=== PATIENT | male | born 1950 | race Caucasian/White ===

== ENCOUNTER 2016-11-20 08:28 | Inpatient (IN) | payer MEDICARE ==
[~2016-11-20] VITALS: Ht 175.3 cm; Wt 105.7 kg
[2016-11-20] VITALS (13 sets, daily range): BP systolic 123–150; BP diastolic 50–82
[2016-11-20] MEDS: IV NORMAL SALINE 1000ML BAG 1,000 ML IV SCH ×2 (10:20→20:15)
[2016-11-20] MEDS: MORPHINE SULFATE 2 MG/ML DISP.SYRIN. IV PRN ×2 (10:21→13:36)
--- NOTE | 2016-11-20 10:57 | PDOC1 ---
History and Physical Identification/Chief Complaint Chief Complaint Admission 11/20/2016 Chief complaint left-sided flank pain History of present illness: A 66-year-old male patient with prior history of renal stones and left-sided lithotripsy presented to the [place] ER with complaints of a sudden onset of left flank pain started this morning around 4 AM pain is intractable nature then bid 10 getting better with Toradol. He had CT of the abdomen for stone protocol which showed a 8 mm mid ureteral stone. Patient has been transferred to [facility] for further evaluation by urology. At the time of my examination patient says his pain is getting better 6 x 10 getting better the morphine denies any hematuria or abdominal pain. past medical history: renal stones with lithotripsy Past surgical history cholecystectomy Family history renal stones present Social history no smoking no alcohol or drug abuse healthy living. Allergies NKDA. Problems: Current Medications Current Medications Current Medications Medications (Trade) Dose Ordered Sig/Annie Start Time Stop Time Status Last Admin Dose Admin Morphine Sulfate 2 mg PRN Q2HR PRN 11/20/16 10:15 11/20/16 10:21 2 MG Sodium Chloride 1,000 ml @ 100 mls/hr Q10H 11/20/16 10:15 11/20/16 10:20 100 MLS/HR Allergies Allergies Allergies Coded Allergies Type Severity Reaction Last Updated Verified No Known Drug Allergies 11/20/16 No ROS Review of System CONSTITUTIONAL: No fever or chills EYES: No recent changes SKIN: No rash or itching CARDIOVASCULAR: No chest pain, syncope, palpitations, or edema RESPIRATORY: No SOB or cough GASTROINTESTINAL: No nausea, vomiting or abdominal pain NEUROLOGICAL: No headaches or weakness ENDOCRINE: No cold or heat intolerance GENITOURINARY: No urgency or frequency of urination MUSCULOSKELETAL: No back pain or joint pain LYMPHATICS: No enlarged lymph nodes PSYCHIATRIC: No anxiety or depression Physical Exam Physical Exam GEN.: No apparent distress. Alert and oriented. HEENT: Head is normocephalic, atraumatic NECK: Supple. LUNGS: Clear to auscultation. HEART: RRR, S1, S2 present. Peripheral pulses intact ABDOMEN: Soft, nontender. Positive bowel sounds. EXTREMITIES: Without any cyanosis. NEUROLOGIC: Normal speech, normal tone PSYCHIATRIC: Normal affect, normal mood. SKIN: No ulcerations Vitals Vitals Vital Signs Date Time Temp Pulse Resp B/P (MAP) Pulse Ox O2 Delivery O2 Flow Rate FiO2 11/20/16 10:21 Room Air VTE Prophylaxis Ordered VTE Prophylaxis Devices: Yes VTE Pharmacological Prophylaxi: No Assessment/Plan Assessment/Plan Assessment and plan #1 recurrent abdominal pain due to large left ureter UPJ stone 8 mm. #2 intractable abdominal pain due to abnormal, #3 sinus bradycardia asymptomatic. Plan #1 patient has been getting IV hydration with normal saline at 100 enemas per hour, continue morphine 2 mg every 2 hours for pain control, patient is asymptomatic denies any chest pain monitor heart rate currently his vitals are stable. Labs and images reviewed from [facility] CBC BMP within normal limits no elevated WBC. Consult Dr. Wright for further evaluation and management Dr. Wright has been notified. Case discussed with ER physician. MAURICE LAWSON MD Nov 20, 2016 10:57
[2016-11-20] MEDS ORDERED: hydrALAZINE 20 MG/ML VIAL. IVP PRN (11:00)
[2016-11-20] MEDS ORDERED: ONDANSETRON PF 4 MG/2 ML VIAL. IV PRN ×2 (11:00→12:30)
[2016-11-20] MEDS ORDERED: ALBUTEROL SULFATE 2.5 MG/3 ML NEBU. NEB PRN (11:00)
[2016-11-20] MEDS ORDERED: ACETAMINOPHEN 325 MG TABLET. PO PRN (11:00)
[2016-11-20] MEDS ORDERED: HYDROcodone/APAP 5/325MG 1 TAB TABLET PO PRN (11:00)
[2016-11-20] MEDS ORDERED: IV RINGERS,LACTATED 1000ML 1,000 ML IV SCH (12:27)
[2016-11-20] MEDS ORDERED: MORPHINE SULFATE 2 MG/ML DISP.SYRIN. IV PRN (12:30)
[2016-11-20] MEDS ORDERED: LIDOCAINE 1% 1 ML SYRINGE. ID PRN (12:30)
[2016-11-20] MEDS ORDERED: fentaNYL PF VIAL 100 MCG/2 ML VIAL IV PRN ×2 (12:30)
[2016-11-20] MEDS ORDERED: PROCHLORPERAZINE 10 MG/2 ML VIAL. IV PRN (12:30)
[2016-11-20] MEDS ORDERED: HYDROmorphone 2 MG/ML VIAL IV PRN (12:30)
[2016-11-20] MEDS ORDERED: LIDOCAINE 2% JELLY 6ML IN APPLICATOR. ONE (12:33)
[2016-11-20] MEDS ORDERED: IOHEXOL 300 MG/ML 50 ML VIAL. ONE (12:33)
--- NOTE | 2016-11-20 15:21 | PDOC ---
PROGRESS NOTES Subjective Subjective Pt. with left renal colic Objective Objective Vital Signs Date Time Temp Pulse Resp B/P (MAP) Pulse Ox O2 Delivery O2 Flow Rate FiO2 11/20/16 14:10 Room Air 11/20/16 11:44 94 11/20/16 11:00 98.2 69 20 145/77 (99) 98.2 Physical Exam Physical Exam Pt. with 8 mm left proximal ureteral stone with mild left hydronephrosis Plan Plan of Care I discussed with the pt. his stone and we discussed the options of observation vs. surgical intervention with cystoscopy with left retrograde pyelogram and left ureteral stent placement. Pt. understands and wishes to proceed with operation. Will proceed accordingly. Comment Review of Relevant I have reviewed the following items mary (where applicable) has been applied. Medications Current Medications Morphine Sulfate 2 mg PRN Q2HR PRN IV PAIN Last administered on 11/20/16 13:36 ; Start 11/20/16 at 10:15 Sodium Chloride 1,000 ml @ 100 mls/hr Q10H IV Last administered on 11/20/16 10 :20; Start 11/20/16 at 10:15 Acetaminophen (Tylenol) 325 mg PRN Q6HRS PRN PO MILD PAIN / TEMP; Start at 11:00 Acetaminophen/ Hydrocodone Bitart (Lortab 5/325) 1 tab PRN Q6HRS PRN PO MODERATE TO SEVERE PAIN; Start 11/20/16 at 11:00 Hydralazine HCl (Apresoline) 10 mg PRN Q4HRS PRN IVP ELEVATED BP, SEE COMMENTS ; Start 11/20/16 at 11:00 Ondansetron HCl (Zofran) 4 mg PRN Q8HRS PRN IV NAUSEA/VOMITING; Start 11/20/16 at 11:00 Albuterol Sulfate (Ventolin Neb Soln) 2.5 mg PRN Q4HRS PRN NEB SHORTNESS OF BREATH; Start 11/20/16 at 11:00; Stop 11/20/16 at 11:50; Status DC Ondansetron HCl (Zofran) 4 mg PRN Q6HRS PRN IV NAUSEA/VOMITING; Start 11/20/16 at 12:30; Stop 11/20/16 at 19:00 Fentanyl Citrate (Fentanyl 2ml Vial) 25 mcg PRN Q5MIN PRN IV MILD PAIN; Start 11/20/16 at 12:30; Stop 11/20/16 at 19:00 Fentanyl Citrate (Fentanyl 2ml Vial) 50 mcg PRN Q5MIN PRN IV MODERATE PAIN; Start 11/20/16 at 12:30; Stop 11/20/16 at 19:00 Morphine Sulfate 1 mg PRN Q10MIN PRN IV SEVERE PAIN; Start 11/20/16 at 12:30; Stop 11/20/16 at 19:00 Ringer's Solution 1,000 ml @ 30 mls/hr Q24H IV ; Start 11/20/16 at 12:27; Stop 11/20/16 at 19:00 Lidocaine HCl 2 ml PRN 1X PRN ID PRIOR TO IV START; Start 11/20/16 at 12:30; Stop 11/20/16 at 19:00 Hydromorphone HCl (Dilaudid) 0.5 mg PRN Q10MIN PRN IV SEV PAIN, Second choice; Start 11/20/16 at 12:30; Stop 11/20/16 at 19:00 Prochlorperazine Edisylate (Compazine) 5 mg PACU PRN PRN IV NAUSEA, MRX1; Start 11/20/16 at 12:30; Stop 11/20/16 at 19:00 Lidocaine HCl (Glydo (Lidocaine) Jelly) 6 jyoti STK-MED ONCE .ROUTE ; Start at 12:33; Stop 11/20/16 at 12:34; Status DC Iohexol (Omnipaque 300 Mg/ml) 50 ml STK-MED ONCE .ROUTE ; Start 11/20/16 at 12:33 ; Stop 11/20/16 at 12:34; Status DC Lidocaine HCl (Glydo (Lidocaine) Jelly) 6 jyoti STK-MED ONCE .ROUTE ; Start at 12:33; Stop 11/20/16 at 12:34; Status DC Vitals/I & O Vital Sign - Last 24 Hours 11/20/16 11/20/16 11/20/16 11/20/16 09:30 10:00 10:00 10:21 Temp 97.5 97.5 97.5 97.5 Pulse 54 54 Resp 20 20 B/P (MAP) 150/82 (104) 150/82 (104) Pulse Ox 96 96 O2 Delivery Room Air Room Air Room Air Room Air 11/20/16 11/20/16 11/20/16 11/20/16 11:00 11:44 13:36 14:10 Temp 98.2 98.2 Pulse 69 Resp 20 B/P (MAP) 145/77 (99) Pulse Ox 92 94 O2 Delivery Room Air Room Air Room Air Room Air MARY HERNANDEZ MD Nov 20, 2016 15:21
[2016-11-20] MEDS ORDERED: LIDOCAINE 2% PF Vial for OR 5 ML VIAL. ONE (15:54)
[2016-11-20] MEDS ORDERED: fentaNYL PF VIAL 100 MCG/2 ML VIAL ONE (15:54)
[2016-11-20] MEDS ORDERED: PROPOFOL 20 ML IV ONE (15:54)
[2016-11-20] MEDS ORDERED: ONDANSETRON PF 4 MG/2 ML VIAL. ONE (16:48)
[2016-11-20] MEDS ORDERED: DEXAMETHASONE SOD PHOS 20 MG/5 ML VIAL. ONE (16:48)
[2016-11-20] MEDS ORDERED: SEVOFLURANE 31 TO 60 MINUTES. IH ONE (17:02)
--- NOTE | 2016-11-20 17:12 | PDOC4 ---
OPERATIVE NOTE: pre-op dx-left proximal ureteral stone procedure-cystoscopy, left retrograde pyelogram, left ureteral stent placement surgeon-mani murphy-general Pt. to PACU in stable condition D/C home tomorrow if doing ok F/U next week or two with [facility] urology at [facility] location for further evaluation and probable left ESWL MARY HERNANDEZ MD Nov 20, 2016 17:12
--- NOTE | 2016-11-20 17:27 | PDOC2 ---
UROLOGY CONSULT Date of Admission DATE: 11/20/16 TIME: 17:25 ROS ROS: RESPIRATORY: Shortness of breath denies. Cough denies. UROLOGY: Denies blood in urine. Denies difficulty urinating Current Medications Current Medications Morphine Sulfate 2 mg PRN Q2HR PRN IV PAIN Last administered on 11/20/16 13:36 ; Start 11/20/16 at 10:15 Sodium Chloride 1,000 ml @ 100 mls/hr Q10H IV Last administered on 11/20/16 10 :20; Start 11/20/16 at 10:15 Acetaminophen (Tylenol) 325 mg PRN Q6HRS PRN PO MILD PAIN / TEMP; Start at 11:00 Acetaminophen/ Hydrocodone Bitart (Lortab 5/325) 1 tab PRN Q6HRS PRN PO MODERATE TO SEVERE PAIN; Start 11/20/16 at 11:00 Hydralazine HCl (Apresoline) 10 mg PRN Q4HRS PRN IVP ELEVATED BP, SEE COMMENTS ; Start 11/20/16 at 11:00 Ondansetron HCl (Zofran) 4 mg PRN Q8HRS PRN IV NAUSEA/VOMITING; Start 11/20/16 at 11:00 Albuterol Sulfate (Ventolin Neb Soln) 2.5 mg PRN Q4HRS PRN NEB SHORTNESS OF BREATH; Start 11/20/16 at 11:00; Stop 11/20/16 at 11:50; Status DC Ondansetron HCl (Zofran) 4 mg PRN Q6HRS PRN IV NAUSEA/VOMITING; Start 11/20/16 at 12:30; Stop 11/20/16 at 19:00 Fentanyl Citrate (Fentanyl 2ml Vial) 25 mcg PRN Q5MIN PRN IV MILD PAIN; Start 11/20/16 at 12:30; Stop 11/20/16 at 19:00 Fentanyl Citrate (Fentanyl 2ml Vial) 50 mcg PRN Q5MIN PRN IV MODERATE PAIN; Start 11/20/16 at 12:30; Stop 11/20/16 at 19:00 Morphine Sulfate 1 mg PRN Q10MIN PRN IV SEVERE PAIN; Start 11/20/16 at 12:30; Stop 11/20/16 at 19:00 Ringer's Solution 1,000 ml @ 30 mls/hr Q24H IV ; Start 11/20/16 at 12:27; Stop 11/20/16 at 19:00 Lidocaine HCl 2 ml PRN 1X PRN ID PRIOR TO IV START; Start 11/20/16 at 12:30; Stop 11/20/16 at 19:00 Hydromorphone HCl (Dilaudid) 0.5 mg PRN Q10MIN PRN IV SEV PAIN, Second choice; Start 11/20/16 at 12:30; Stop 11/20/16 at 19:00 Prochlorperazine Edisylate (Compazine) 5 mg PACU PRN PRN IV NAUSEA, MRX1; Start 11/20/16 at 12:30; Stop 11/20/16 at 19:00 Lidocaine HCl (Glydo (Lidocaine) Jelly) 6 jyoti STK-MED ONCE .ROUTE ; Start at 12:33; Stop 11/20/16 at 12:34; Status DC Iohexol (Omnipaque 300 Mg/ml) 50 ml STK-MED ONCE .ROUTE ; Start 11/20/16 at 12:33 ; Stop 11/20/16 at 12:34; Status DC Lidocaine HCl (Glydo (Lidocaine) Jelly) 6 jyoti STK-MED ONCE .ROUTE ; Start at 12:33; Stop 11/20/16 at 12:34; Status DC Propofol 20 ml @ As Directed STK-MED ONCE IV ; Start 11/20/16 at 15:54; Stop 11/20 at 15:55; Status DC Lidocaine HCl (Lidocaine Pf 2% Vial) 5 ml STK-MED ONCE .ROUTE ; Start 11/20/16 at 15:54; Stop 11/20/16 at 15:55; Status DC Fentanyl Citrate (Fentanyl 2ml Vial) 100 mcg STK-MED ONCE .ROUTE ; Start at 15:54; Stop 11/20/16 at 15:55; Status DC Cefazolin Sodium 50 ml @ As Directed STK-MED ONCE IV ; Start 11/20/16 at 16:44; Stop 11/20/16 at 16:45; Status DC Ondansetron HCl (Zofran) 4 mg STK-MED ONCE .ROUTE ; Start 11/20/16 at 16:48; Stop 11/20/16 at 16:49; Status DC Dexamethasone Sodium Phosphate (Decadron) 20 mg STK-MED ONCE .ROUTE ; Start 11/20 at 16:48; Stop 11/20/16 at 16:49; Status DC Sevoflurane (Ultane) 30 ml STK-MED ONCE IH ; Start 11/20/16 at 17:02; Stop at 17:03; Status DC Trimethoprim/ Sulfamethoxazole (Bactrim Ds) 1 tab BID PO ; Start 11/20/16 at 18: 00 Tamsulosin HCl (Flomax) 0.4 mg DAILY PO ; Start 11/20/16 at 18:00 Allergies: Coded Allergies: No Known Drug Allergies (Unverified , 11/20/16) Physical Examination PHYSICAL EXAMINATION: GENERAL: Gen. appearance: No acute distress. Mood/affect: Pleasant. HEENT: Head: Normocephalic, atraumatic. Airway Impairment: No. CHEST: Shape and expansion: Normal. Expansion: Normal. SKIN: General: Warm. Color: Good. GENITOURINARY:External genitalia - wnl. NEUROLOGICAL: Mental status: Alert and oriented 3. Language: Normal. VITALS Vital Signs Date Time Temp Pulse Resp B/P (MAP) Pulse Ox O2 Delivery O2 Flow Rate FiO2 11/20/16 17:19 56 16 147/84 98 Simple Mask 10 11/20/16 17:04 97.8 97.8 Assessment/Plan The patient is a very pleasant 66-year-old white male with history of left renal colic which began this morning. Patient was seen at the [facility] emergency room and found to have an 8 mm left proximal ureteral stone with obstruction. Patient with some continued intermittent left-sided renal colic. Patient with a past history of stones. Patient underwent a lithotripsy in the past 1. Patient also passed a 4 mm stone in the past. Patient's past medical history just significant or some orthopedic procedures on his knees and appendectomy tonsillectomy ESWL and these also had a prior TURP. Patient states he also has a history of elevated PSA and has undergone biopsies in the past which were negative for malignancy according to the patient. On physical exam patient has some mild left-sided flank pain and left sided abdominal pain. Testes are descended bilaterally phallus within normal limits on rectal examination he has good sphincter tone prostate is smooth nontender without nodules overall size 30 g. Patient normally is on no medications he has no known drug allergies. I discussed with the patient his stone and we discussed the options alternatives benefits risks and possible complications of observation versus surgical intervention with cystoscopy left retrograde Pyelogram and left ureteral stent placement to get an him unobstructed. An cyst does wish proceed ahead with operation. MARY HERNANDEZ MD Nov 20, 2016 17:27
--- NOTE | 2016-11-20 17:31 | PDOC4 ---
OPERATIVE NOTE: Preoperative diagnosis left proximal ureteral stone. Postoperative diagnosis same, procedure cystoscopy left retrograde Polygram left ureteral stent placement surgeon Kyle anesthesia Gen. indications patient is a very pleasant 66-year-old white male with 8 mm left proximal ureteral calculus with obstruction and intermittent left renal colic. I have discussed with the patient the options alternatives benefits risks and possible complications of observation versus cystoscopy left retrograde Polygram and left ureteral stent placement. Patient understands this and does wish proceeded with operation seizure note: After obtaining informed consent patient was taken to the operating room and after an excellent general anesthetic patient was placed in a dorsal lithotomy position. Groin was prepped and draped in a sterile fashion and the patient preloaded with IV antibiotics. Panendoscopy and cystoscopy were then performed with the 30 and 70 lenses on the 21 Occitan cystoscope sheath. Penile urethra sounded grossly normal external sphincter. Intact prostate with showed moderate bilobar enlargement bladder was entered and inspected. Both ureteral orifices were identified and found to grossly patent. Bladder wall showed some minimal trabeculation. No bladder tumors or bladder stones were identified. Patient was noted to have radiopacities in the area of the left proximal ureter. Left retrograde Polygram was then performed. Left distal and mid ureter. Within normal limits. Filling defect was noted in the area where the radiopacity was consistent on the patient stone with dilation above that level. Following this a floppy tip ZIP wire is then passed up the left ureteral orifice up the left ureter past the stone the left kidney. Following this the 5 Occitan open-ended Pollack catheter was passed over the ZIP wire up the left ureter and the stone rolled back to the left kidney as the Pollack catheter passed over the wire and up to the left kidney following this the ZIP wire is removed and a hydronephrotic drip was noted following this the ZIP wire was then replaced and the Pollack catheter removed and a 4.8 x 26 double-J stent then passed up the ZIP wire placing one curl in left kidney and the other curl in the bladder and the ZIP wire moved stent position was checked by fluoroscopy and direct vision found be in good position following this the bladder was then drained and the cystoscope withdrawn from the patient patient tolerated the procedure very well and was taken the recovery room stable condition we'll plan on having the patient follow up with urology care at [facility] for further evaluation and probable left-sided ESWL in the next week or 2. MARY HERNANDEZ MD Nov 20, 2016 17:31
[2016-11-20] MEDS: TAMSULOSIN 0.4 MG CAP.ER.24H. PO SCH (18:23)
[2016-11-20] MEDS: SMZ/TMP 800/160MG TABLET. PO SCH (18:23)
[2016-11-21 03:11] VITALS: BP 99/48
[2016-11-21 04:52] LABS: BASO % 0 % (0-3); EOS % 0 % (0-3); HEMATOCRIT 42.1 % (39.0-53.0); HEMOGLOBIN 14.3 g/dL (13.0-17.5); LYMPH # 0.8 x10^3/uL (1.0-4.8); LYMPH % 9 % (24-48); MEAN CORPUSCULAR HEMOGLOBIN 30 pg (25-35); MEAN CORPUSCULAR HGB CONC 34 g/dL (31-37); MEAN CORPUSCULAR VOLUME 88 fL (79-100); MONO % 2 % (0-9); NEUT % 88 % (31-73); PLATELET COUNT 192 x10^3/uL (140-400); RED BLOOD COUNT 4.79 x10^6/uL (4.30-5.70); RED CELL DISTRIBUTION WIDTH 13.7 % (11.5-14.5); WHITE BLOOD COUNT 9.3 x10^3/uL (4.0-11.0)
[2016-11-21 05:06] LABS: CREATININE 1.2 mg/dL (0.7-1.3); GFR 60.8; POTASSIUM 4.6 mmol/L (3.5-5.1)
--- NOTE | 2016-11-21 05:53 | ACF ---
Admission Forms Criteria RENAL COLIC AND KIDNEY STONES Clinical Indications for Admission to Inpatient Care ( Place 'X' for any and all applicable criteria): Admission is indicated for ANY ONE of the following (1)(2)(3)(4): [X]I. Inpatient admission required rather than observation care (Also use Renal Colic and Kidney Stones: Observation Care Criteria as appropriate) because of ANY ONE of the following: [X]a) Severe pain requiring acute inpatient management [ ]b) Urinary tract infection identified [ ]c) Vomiting that is severe or persistent [ ]d) IV fluid required rather than oral rehydration to replace significant ongoing (eg, for greater than 24 hours) losses (greater than 200 mL/hr or 3 L/m2 per day) [ ]e) Percutaneous or open drainage (eg, abscess, biliary tract) procedures [ ]f) Other condition, treatment or monitoring requiring inpatient admission [ ]II. Impending acute renal failure [ ]III. Bilateral obstruction [ ]IV. Single kidney with obstruction [ ]V. Transplanted kidney with obstruction [ ]. Possible open surgical procedure needed (eg, pyonephrosis, stone removal not amendable to other means) [ ]VII. Hemodynamic instability Extended stay beyond goal length of stay may be needed for(2)(3)(31): [ ]a) Failed initial stone removal (32) [ ]b) Pyonephrosis [ ]c) Obstructive uropathy with urinary tract infection [ ]d) Procedure complications [ ]e) Comorbidities (22) The original [employer] [facility] content created by [employer] has been revised. The portions of the content which have been revised are identified through the use of italic text or in bold, and [facility] has neither reviewed nor approved the modified material. All other unmodified content is copyright [employer] [employer]. Please see references footnoted in the original [facility] [employer] edition 2016 Admission Criteria Met?: Yes NIR SAMANO Nov 21, 2016 05:53
[2016-11-21 06:55] LABS: PLT ESTIMATE ADEQUATE (ADEQUATE)
[2016-11-21 07:02] VITALS: BP 123/68
--- NOTE | 2016-11-21 07:14 | RAD ---
Left retrograde urogram, 11/20/2016: History: Stent placement 3 spot films from surgery are presented for review. 207 seconds of fluoroscopy time was utilized. The images show a left ureteral stent in place with its upper end overlying the left renal pelvis and its lower end overlying the right side of the urinary bladder. There is a small amount of contrast material within the left renal pelvis which is mildly dilated. There is a suggestion of a filling defect at the ureteropelvic junction level probably representing the patient's known obstructing calculus.
--- NOTE | 2016-11-21 08:35 | PDOC ---
PROGRESS NOTES Subjective Subjective Pt. feeling ok Objective Objective Vital Signs Date Time Temp Pulse Resp B/P (MAP) Pulse Ox O2 Delivery O2 Flow Rate FiO2 11/21/16 07:02 97.9 66 18 123/68 (86) 92 Room Air 97.9 11/20/16 17:34 3 Intake and Output 11/21/16 07:00 Intake Total 1025 ml Output Total 50 ml Balance 975 ml Intake Oral 125 ml IV Total 900 ml Output Urine Total 50 ml # Voids 1 Physical Exam Physical Exam mild dysuria otherwise ok Plan Plan of FDC today f/u with [facility] at [facility] for further treatment of left renal stone Comment Review of Relevant I have reviewed the following items mary (where applicable) has been applied. Labs Laboratory Tests Test 11/21/16 04:16 White Blood Count 9.3 x10^3/uL (4.0-11.0) Red Blood Count 4.79 x10^6/uL (4.30-5.70) Hemoglobin 14.3 g/dL (13.0-17.5) Hematocrit 42.1 % (39.0-53.0) Mean Corpuscular Volume 88 fL (79-100) Mean Corpuscular Hemoglobin 30 pg (25-35) Mean Corpuscular Hemoglobin Concent 34 g/dL (31-37) Red Cell Distribution Width 13.7 % (11.5-14.5) Platelet Count 192 x10^3/uL (140-400) Neutrophils (%) (Auto) 88 % (31-73) Lymphocytes (%) (Auto) 9 % (24-48) Monocytes (%) (Auto) 2 % (0-9) Eosinophils (%) (Auto) 0 % (0-3) Basophils (%) (Auto) 0 % (0-3) Neutrophils # (Auto) 8.2 x10^3uL (1.8-7.7) Lymphocytes # (Auto) 0.8 x10^3/uL (1.0-4.8) Monocytes # (Auto) 0.2 x10^3/uL (0.0-1.1) Eosinophils # (Auto) 0.0 x10^3/uL (0.0-0.7) Basophils # (Auto) 0.0 x10^3/uL (0.0-0.2) Segmented Neutrophils % 78 % (35-66) Band Neutrophils % 8 % (0-9) Lymphocytes % 12 % (24-48) Monocytes % 2 % (0-10) Platelet Estimate Adequate (ADEQUATE) Sodium Level 143 mmol/L (136-145) Potassium Level 4.6 mmol/L (3.5-5.1) Chloride Level 107 mmol/L (98-107) Carbon Dioxide Level 27 mmol/L (21-32) Anion Gap 9 (6-14) Blood Urea Nitrogen 15 mg/dL (8-26) Creatinine 1.2 mg/dL (0.7-1.3) Estimated GFR (Cockcroft-Gault) 60.8 Glucose Level 140 mg/dL (70-99) Calcium Level 8.0 mg/dL (8.5-10.1) Laboratory Tests Test 11/21/16 04:16 White Blood Count 9.3 x10^3/uL (4.0-11.0) Red Blood Count 4.79 x10^6/uL (4.30-5.70) Hemoglobin 14.3 g/dL (13.0-17.5) Hematocrit 42.1 % (39.0-53.0) Mean Corpuscular Volume 88 fL (79-100) Mean Corpuscular Hemoglobin 30 pg (25-35) Mean Corpuscular Hemoglobin Concent 34 g/dL (31-37) Red Cell Distribution Width 13.7 % (11.5-14.5) Platelet Count 192 x10^3/uL (140-400) Neutrophils (%) (Auto) 88 % (31-73) Lymphocytes (%) (Auto) 9 % (24-48) Monocytes (%) (Auto) 2 % (0-9) Eosinophils (%) (Auto) 0 % (0-3) Basophils (%) (Auto) 0 % (0-3) Neutrophils # (Auto) 8.2 x10^3uL (1.8-7.7) Lymphocytes # (Auto) 0.8 x10^3/uL (1.0-4.8) Monocytes # (Auto) 0.2 x10^3/uL (0.0-1.1) Eosinophils # (Auto) 0.0 x10^3/uL (0.0-0.7) Basophils # (Auto) 0.0 x10^3/uL (0.0-0.2) Segmented Neutrophils % 78 % (35-66) Band Neutrophils % 8 % (0-9) Lymphocytes % 12 % (24-48) Monocytes % 2 % (0-10) Platelet Estimate Adequate (ADEQUATE) Sodium Level 143 mmol/L (136-145) Potassium Level 4.6 mmol/L (3.5-5.1) Chloride Level 107 mmol/L (98-107) Carbon Dioxide Level 27 mmol/L (21-32) Anion Gap 9 (6-14) Blood Urea Nitrogen 15 mg/dL (8-26) Creatinine 1.2 mg/dL (0.7-1.3) Estimated GFR (Cockcroft-Gault) 60.8 Glucose Level 140 mg/dL (70-99) Calcium Level 8.0 mg/dL (8.5-10.1) Medications Current Medications Morphine Sulfate 2 mg PRN Q2HR PRN IV PAIN Last administered on 11/20/16 13:36 ; Start 11/20/16 at 10:15 Sodium Chloride 1,000 ml @ 100 mls/hr Q10H IV Last administered on 11/20/16 10 :20; Start 11/20/16 at 10:15 Acetaminophen (Tylenol) 325 mg PRN Q6HRS PRN PO MILD PAIN / TEMP; Start at 11:00 Acetaminophen/ Hydrocodone Bitart (Lortab 5/325) 1 tab PRN Q6HRS PRN PO MODERATE TO SEVERE PAIN; Start 11/20/16 at 11:00 Hydralazine HCl (Apresoline) 10 mg PRN Q4HRS PRN IVP ELEVATED BP, SEE COMMENTS ; Start 11/20/16 at 11:00 Ondansetron HCl (Zofran) 4 mg PRN Q8HRS PRN IV NAUSEA/VOMITING; Start 11/20/16 at 11:00 Albuterol Sulfate (Ventolin Neb Soln) 2.5 mg PRN Q4HRS PRN NEB SHORTNESS OF BREATH; Start 11/20/16 at 11:00; Stop 11/20/16 at 11:50; Status DC Ondansetron HCl (Zofran) 4 mg PRN Q6HRS PRN IV NAUSEA/VOMITING; Start 11/20/16 at 12:30; Stop 11/20/16 at 19:00; Status DC Fentanyl Citrate (Fentanyl 2ml Vial) 25 mcg PRN Q5MIN PRN IV MILD PAIN; Start 11/20/16 at 12:30; Stop 11/20/16 at 19:00; Status DC Fentanyl Citrate (Fentanyl 2ml Vial) 50 mcg PRN Q5MIN PRN IV MODERATE PAIN; Start 11/20/16 at 12:30; Stop 11/20/16 at 19:00; Status DC Morphine Sulfate 1 mg PRN Q10MIN PRN IV SEVERE PAIN; Start 11/20/16 at 12:30; Stop 11/20/16 at 19:00; Status DC Ringer's Solution 1,000 ml @ 30 mls/hr Q24H IV ; Start 11/20/16 at 12:27; Stop 11/20/16 at 19:00; Status DC Lidocaine HCl 2 ml PRN 1X PRN ID PRIOR TO IV START; Start 11/20/16 at 12:30; Stop 11/20/16 at 19:00; Status DC Hydromorphone HCl (Dilaudid) 0.5 mg PRN Q10MIN PRN IV SEV PAIN, Second choice; Start 11/20/16 at 12:30; Stop 11/20/16 at 19:00; Status DC Prochlorperazine Edisylate (Compazine) 5 mg PACU PRN PRN IV NAUSEA, MRX1; Start 11/20/16 at 12:30; Stop 11/20/16 at 19:00; Status DC Lidocaine HCl (Glydo (Lidocaine) Jelly) 6 jyoti STK-MED ONCE .ROUTE Last administered on 11/20/16 16:56; Start 11/20/16 at 12:33; Stop 11/20/16 at 12:34; Status DC Iohexol (Omnipaque 300 Mg/ml) 50 ml STK-MED ONCE .ROUTE Last administered on 16:43; Start 11/20/16 at 12:33; Stop 11/20/16 at 12:34; Status DC Lidocaine HCl (Glydo (Lidocaine) Jelly) 6 jyoti STK-MED ONCE .ROUTE Last administered on 11/20/16 16:56; Start 11/20/16 at 12:33; Stop 11/20/16 at 12:34; Status DC Propofol 20 ml @ As Directed STK-MED ONCE IV ; Start 11/20/16 at 15:54; Stop 11/20 at 15:55; Status DC Lidocaine HCl (Lidocaine Pf 2% Vial) 5 ml STK-MED ONCE .ROUTE ; Start 11/20/16 at 15:54; Stop 11/20/16 at 15:55; Status DC Fentanyl Citrate (Fentanyl 2ml Vial) 100 mcg STK-MED ONCE .ROUTE ; Start at 15:54; Stop 11/20/16 at 15:55; Status DC Cefazolin Sodium 50 ml @ As Directed STK-MED ONCE IV ; Start 11/20/16 at 16:44; Stop 11/20/16 at 16:45; Status DC Ondansetron HCl (Zofran) 4 mg STK-MED ONCE .ROUTE ; Start 11/20/16 at 16:48; Stop 11/20/16 at 16:49; Status DC Dexamethasone Sodium Phosphate (Decadron) 20 mg STK-MED ONCE .ROUTE ; Start 11/20 at 16:48; Stop 11/20/16 at 16:49; Status DC Sevoflurane (Ultane) 30 ml STK-MED ONCE IH ; Start 11/20/16 at 17:02; Stop at 17:03; Status DC Trimethoprim/ Sulfamethoxazole (Bactrim Ds) 1 tab BID PO Last administered on 18:23; Start 11/20/16 at 18:00 Tamsulosin HCl (Flomax) 0.4 mg DAILY PO Last administered on 11/20/16 18:23; Start 11/20/16 at 18:00 Vitals/I & O Vital Sign - Last 24 Hours 11/20/16 11/20/16 11/20/16 11/20/16 09:30 10:00 10:00 10:21 Temp 97.5 97.5 97.5 97.5 Pulse 54 54 Resp 20 20 B/P (MAP) 150/82 (104) 150/82 (104) Pulse Ox 96 96 O2 Delivery Room Air Room Air Room Air Room Air 11/20/16 11/20/16 11/20/16 11/20/16 11:00 11:44 13:36 14:10 Temp 98.2 98.2 Pulse 69 Resp 20 B/P (MAP) 145/77 (99) Pulse Ox 92 94 O2 Delivery Room Air Room Air Room Air Room Air 11/20/16 11/20/16 11/20/16 11/20/16 15:00 17:04 17:19 17:25 Temp 98.2 97.8 98.2 97.8 Pulse 45 51 56 Resp 20 14 16 B/P (MAP) 135/74 (94) 108/61 147/84 Pulse Ox 93 95 98 O2 Delivery Room Air Simple Mask Simple Mask Room Air O2 Flow Rate 10 10 11/20/16 11/20/16 11/20/16 11/20/16 17:34 18:07 18:22 18:37 Temp 97.7 97.7 Pulse 54 49 52 45 Resp 14 B/P (MAP) 155/76 123/59 (80) 126/69 (88) 123/68 (86) Pulse Ox 93 O2 Delivery Nasal Cannula O2 Flow Rate 3 11/20/16 11/20/16 11/20/16 11/20/16 18:52 19:22 19:52 20:00 Pulse 55 55 B/P (MAP) 131/65 (87) 133/56 (81) 131/50 (77) O2 Delivery Room Air 11/20/16 11/20/16 11/20/16 11/21/16 20:52 21:52 23:26 03:11 Temp 98.1 98.1 Pulse 77 59 59 53 Resp 18 18 B/P (MAP) 141/72 (95) 144/62 (89) 144/62 (89) 99/48 (65) Pulse Ox 95 O2 Delivery Room Air Room Air 11/21/16 07:02 Temp 97.9 97.9 Pulse 66 Resp 18 B/P (MAP) 123/68 (86) Pulse Ox 92 O2 Delivery Room Air Intake and Output 11/20/16 11/20/16 11/21/16 15:00 23:00 07:00 Intake Total 925 ml 100 ml Output Total 50 ml Balance 875 ml 100 ml MARY HERNANDEZ MD Nov 21, 2016 08:35
[2016-11-21] MEDS ORDERED: PHENAZOPYRIDINE 200 MG TABLET. PO PRN (08:45)
[2016-11-21] MEDS: SMZ/TMP 800/160MG TABLET. PO SCH (09:19)
[2016-11-21] MEDS: TAMSULOSIN 0.4 MG CAP.ER.24H. PO SCH (09:19)
[2016-11-21] MEDS: IV NORMAL SALINE 1000ML BAG 1,000 ML IV SCH (09:22)
[2016-11-21 10:27] VITALS: BP 115/52
[2016-11-21] MEDS ORDERED: SULF-143 PO (11:00)
[2016-11-21] MEDS ORDERED: HYDR-2758 PO (11:00)
[2016-11-21] MEDS ORDERED: TAMS0.4C97 PO (11:00)
[2016-11-21] MEDS ORDERED: PHEN-444 PO (11:00)
--- NOTE | 2016-11-21 16:10 | PDOC3 ---
Discharge Summary Visit Information Date of Admission: Nov 20, 2016 Date of Discharge: Nov 21, 2016 Admitting Diagnosis: renal stone Final Diagnosis #1 recurrent abdominal pain due to large left ureter UPJ stone 8 mm. #2 intractable abdominal pain due to abnormal, \ #3 sinus bradycardia Brief Hospital Course Allergies Allergies Coded Allergies Type Severity Reaction Last Updated Verified No Known Drug Allergies 11/20/16 No Vital Signs Vital Signs Date Time Temp Pulse Resp B/P (MAP) Pulse Ox O2 Delivery O2 Flow Rate FiO2 11/21/16 10:27 97.7 69 22 115/52 (73) 97 Room Air 97.7 11/20/16 17:34 3 Lab Results Laboratory Tests Test 11/21/16 04:16 White Blood Count 9.3 x10^3/uL (4.0-11.0) Red Blood Count 4.79 x10^6/uL (4.30-5.70) Hemoglobin 14.3 g/dL (13.0-17.5) Hematocrit 42.1 % (39.0-53.0) Mean Corpuscular Volume 88 fL (79-100) Mean Corpuscular Hemoglobin 30 pg (25-35) Mean Corpuscular Hemoglobin Concent 34 g/dL (31-37) Red Cell Distribution Width 13.7 % (11.5-14.5) Platelet Count 192 x10^3/uL (140-400) Neutrophils (%) (Auto) 88 % (31-73) Lymphocytes (%) (Auto) 9 % (24-48) Monocytes (%) (Auto) 2 % (0-9) Eosinophils (%) (Auto) 0 % (0-3) Basophils (%) (Auto) 0 % (0-3) Neutrophils # (Auto) 8.2 x10^3uL (1.8-7.7) Lymphocytes # (Auto) 0.8 x10^3/uL (1.0-4.8) Monocytes # (Auto) 0.2 x10^3/uL (0.0-1.1) Eosinophils # (Auto) 0.0 x10^3/uL (0.0-0.7) Basophils # (Auto) 0.0 x10^3/uL (0.0-0.2) Segmented Neutrophils % 78 % (35-66) Band Neutrophils % 8 % (0-9) Lymphocytes % 12 % (24-48) Monocytes % 2 % (0-10) Platelet Estimate Adequate (ADEQUATE) Sodium Level 143 mmol/L (136-145) Potassium Level 4.6 mmol/L (3.5-5.1) Chloride Level 107 mmol/L (98-107) Carbon Dioxide Level 27 mmol/L (21-32) Anion Gap 9 (6-14) Blood Urea Nitrogen 15 mg/dL (8-26) Creatinine 1.2 mg/dL (0.7-1.3) Estimated GFR (Cockcroft-Gault) 60.8 Glucose Level 140 mg/dL (70-99) Calcium Level 8.0 mg/dL (8.5-10.1) Laboratory Tests Test 11/21/16 04:16 White Blood Count 9.3 x10^3/uL (4.0-11.0) Red Blood Count 4.79 x10^6/uL (4.30-5.70) Hemoglobin 14.3 g/dL (13.0-17.5) Hematocrit 42.1 % (39.0-53.0) Mean Corpuscular Volume 88 fL (79-100) Mean Corpuscular Hemoglobin 30 pg (25-35) Mean Corpuscular Hemoglobin Concent 34 g/dL (31-37) Red Cell Distribution Width 13.7 % (11.5-14.5) Platelet Count 192 x10^3/uL (140-400) Neutrophils (%) (Auto) 88 % (31-73) Lymphocytes (%) (Auto) 9 % (24-48) Monocytes (%) (Auto) 2 % (0-9) Eosinophils (%) (Auto) 0 % (0-3) Basophils (%) (Auto) 0 % (0-3) Neutrophils # (Auto) 8.2 x10^3uL (1.8-7.7) Lymphocytes # (Auto) 0.8 x10^3/uL (1.0-4.8) Monocytes # (Auto) 0.2 x10^3/uL (0.0-1.1) Eosinophils # (Auto) 0.0 x10^3/uL (0.0-0.7) Basophils # (Auto) 0.0 x10^3/uL (0.0-0.2) Segmented Neutrophils % 78 % (35-66) Band Neutrophils % 8 % (0-9) Lymphocytes % 12 % (24-48) Monocytes % 2 % (0-10) Platelet Estimate Adequate (ADEQUATE) Sodium Level 143 mmol/L (136-145) Potassium Level 4.6 mmol/L (3.5-5.1) Chloride Level 107 mmol/L (98-107) Carbon Dioxide Level 27 mmol/L (21-32) Anion Gap 9 (6-14) Blood Urea Nitrogen 15 mg/dL (8-26) Creatinine 1.2 mg/dL (0.7-1.3) Estimated GFR (Cockcroft-Gault) 60.8 Glucose Level 140 mg/dL (70-99) Calcium Level 8.0 mg/dL (8.5-10.1) Brief Hospital Course Mr. Bone is a 66 old male, admit for pain, renal stone, IV hydration with normal saline at 100 enemas per hour, continue morphine 2 mg every 2 hours for pain control, patient is asymptomatic denies any chest pain monitor heart rate currently his vitals are stable. Labs and images reviewed from [facility] CBC BMP within normal limits no elevated WBC. dx-left proximal ureteral stone - Dr. Wright, procedure-cystoscopy, left retrograde pyelogram, left ureteral stent placement F/U next week or two with [facility] [facility] at [facility] for further evaluation and probable left ESWL Discharge Information Condition at Discharge: Improved Follow Up: Weeks Disposition/Orders: D/C to Home Scheduled Sulfamethoxazole/Trimethoprim (Sulfamethoxazole-Tmp Ds Tablet), 1 TAB PO BID Tamsulosin Hcl (Flomax), 0.4 MG PO DAILY Scheduled PRN Hydrocodone Bit/Acetaminophen (Hydrocodone-Apap 5-325 ), 1 TAB PO PRN Q6HRS PRN for MODERATE TO SEVERE PAIN Phenazopyridine Hcl (Phenazopyridine Hcl), 200 MG PO PRN TID PRN for URINARY PAIN Patient Instructions Patient Instructions ID consult, follow cont abx 10 total days time > 30 min AVELINO AGUILA MD Nov 21, 2016 16:10
== END 2016-11-21 13:17 | disposition home or self-care (01) | DRG 694 ==
LOC: 4 NORTH 09:20
PROVIDERS: ADMIT Internal Medicine; ATTEND Internal Medicine
PROC: 0T778DZ Dilation of Left Ureter with Intraluminal Device, Via Natural or Artificial Opening Endoscopic (ICD-10-PCS; 2016-11-20)
PROC: BT1F1ZZ Fluoroscopy of Left Kidney, Ureter and Bladder using Low Osmolar Contrast (ICD-10-PCS; principal; 2016-11-20 16:00)
DX: N20.2 Calculus of kidney with calculus of ureter (principal); R00.1 Bradycardia, unspecified; R56.9 Unspecified convulsions; Z84.1 Family history of disorders of kidney and ureter; Z87.442 Personal history of urinary calculi; Z90.79 Acquired absence of other genital organ(s); Z90.49 Acquired absence of other specified parts of digestive tract
CPT/HCPCS: 36415; 74420; 80048; 85007; 85027; 94250; 94760; A6539; C1769; C2617; J0690; J1100; J2001; J2270; J2405; J2704; J3010; J7030; Q9967